=== PATIENT | female | born 1980 | race Caucasian/White ===

== ENCOUNTER 2020-11-11 14:41 | Emergency (ER) | payer MEDICAID, SELFPAY ==
[~2020-11-11] VITALS: Ht 154.9 cm; Wt 90.7 kg
[2020-11-11 14:43] VITALS: Ht 154.9 cm; Wt 90.7 kg
[2020-11-11 16:25] VITALS: BP 159/99
== END 2020-11-11 16:25 | disposition home or self-care (01) ==
LOC: ED 14:41
DX: B34.9 Viral infection, unspecified (principal); Z20.828 Contact with and (suspected) exposure to other viral communicable diseases; Z88.2 Allergy status to sulfonamides
CPT/HCPCS: U0003